=== PATIENT | female | born 1940 | race Caucasian/White ===

== ENCOUNTER → 2016-10-14 | Outpatient (CLI) | payer MEDICARE, MEDICAID ==
[~2016-10-14] MED LIST: ACETAMINOPHEN500 MG PO; ACYCLOVIR400 MG PO; ALBUTEROL2.5 MG/31 INH; AMIODARONE HCL100 MG PO; ASPIRIN325 MG PO; ATIVAN 0.5MG0.5 MG PO; AUGMENTIN XR1000 MG PO; CALCIUM 600 +1 EAC6 PO; CEFDINIR300 MG PO; CIPRO500 MG PO; COMPAZINE 10MG10 MG PO; DELTASONE10 MG PO; DELTASONE20 MG PO; DIFICID200 MG PO; DIFLUCAN200 MG PO; FLONASE 50 MCG/16 GM NOSE; FLUCONAZOLE200 MG PO; GABAPENTIN300 MG PO; IMODIUM MULTI-1 EACH PO; KLOR-CON M2020 MEQ PO; LASIX40 M1 PO; LEVAQUIN 750 M750 MG PO; LEVOFLOXACIN250 MG; LEXAPRO20 MG PO; MULTIVITAMINS1 EAC2 PO; NEURONTIN300 MG PO; NORCO 5-325 MG1 TAB PO; OMNICEF 300MG300 MG PO; OSCAL500 MG PO; OXYGEN M-15 INH; PRILOSEC20 MG PO; PRINIVIL (ZESTR20 MG PO; PROAIR HFA8.5 GM INH; PROBIOTIC1 EAC1 PO; PROTONIX40 MG PO; PROVENTIL2.5 MG/0.5 INH; REMERON15 MG PO; SOTALOL80 MG PO; SPIRIVA18 MCG INH; ZOCOR40 MG PO; ZOFRAN4 MG PO; ZOFRAN8 MG PO
[2016-10-14 14:15] LABS: HEMATOCRIT 29.8 % (33.0-46.0); HEMOGLOBIN 9.3 g/dL (10.0-15.0); MCH 27.1 pg (27.0-34.0); MCHC 31.2 gm/dL (32.0-36.5); MCV 86.9 fl (83.0-98.0); RBC 3.43 M/uL (3.50-5.50); RDW-CV 16.7 % (11.9-14.6); WBC 13.7 K/uL (4.0-11.0)
[2016-10-14 14:27] LABS: PLATELET COUNT 5 K/uL (150-450)
[2016-10-14 14:55] LABS: ABSOLUTE NEUTROPHIL CT (ANC) 8.4 K/uL (1.8-7.8); LYMPHOCYTE # 1.8 K/uL (0.8-4.0); LYMPHOCYTE % 13 %; MONOCYTE # 3.7 K/uL (0.0-1.0); SEGMENTED NEUTROPHIL # 8.4 K/uL (1.8-7.8); SEGMENTED NEUTROPHIL % 61 %
== END | disposition disaster alternative care site (69) ==
LOC: LHHCN 14:09 → EDBD 14:09
PROVIDERS: Internal Medicine Hematology & Oncology
DX: C34.2 Malignant neoplasm of middle lobe, bronchus or lung (principal); C79.51 Secondary malignant neoplasm of bone; D46.9 Myelodysplastic syndrome, unspecified; D69.6 Thrombocytopenia, unspecified

== ENCOUNTER 2016-10-15 05:23 | Emergency (ER) | payer MEDICARE, MEDICAID ==
--- NOTE | ~2016-10-15 | ER ---
PATIENT'S NAME: MARILEE SENA [facility] AGE: 76 Y [address] ROOM: [place] [address] LOCATION: [facility] ADMIT DATE: 10/15/2016 ER/Outpatient Report DISCHARGE DATE: 10/15/2016 FAMILY PHYSICIAN: Giselle Jones MD ATTENDING PHYSICIAN: Chavo Wyman Time of Arrival: 0522 hours. Time of Evaluation: 0522 hours. CHIEF COMPLAINT: Nosebleed. HISTORY OF PRESENT ILLNESS: The patient is a 76-year-old female, who presents to the emergency department today with a chief complaint of nosebleed. She reports this started last night. It is coming from the left naris. She is scheduled for a platelet infusion this morning at 10 o'clock. She denies any fevers, chills, nausea, or vomiting. No nasal congestion or nasal drainage. The patient does wear chronic home O2 at 3 L at home. She denies any pain at this time, 0 out of 10 in severity. PAST MEDICAL HISTORY: COPD; heart disease; myelodysplastic leukemia, brain, bone; and lung cancer. PAST SURGICAL HISTORY: Cholecystectomy, back surgery, right knee, left knee. SOCIAL HISTORY: The patient denies any tobacco, alcohol, or illicit drug use. ALLERGIES: NO KNOWN DRUG ALLERGIES. MEDICATIONS: Please see list. ONCOLOGIST: Dr. Alex. REVIEW OF SYSTEMS: All systems are reviewed by myself and are negative with the exception of those discussed in the HPI and past medical history. PHYSICAL EXAMINATION: VITAL SIGNS: Blood pressure 131/68, pulse 94, respiratory rate 16, PATIENT'S NAME: MARILEE SENA [facility] AGE: 76 Y [address] ROOM: [place] [address] LOCATION: [facility] ADMIT DATE: 10/15/2016 ER/Outpatient Report DISCHARGE DATE: 10/15/2016 FAMILY PHYSICIAN: Giselle Jones MD ATTENDING PHYSICIAN: Chavo Wyman temperature 97.2, oxygen saturation 94% on 3 L nasal cannula. GENERAL: The patient is a 76-year-old female, appears older than stated age, in no acute distress with active nosebleed. HEENT: Head: Normocephalic, atraumatic. Pupils are equal, round, and reactive to light. Left naris with bloody discharge noted. Oropharynx is clear. NECK: Supple. There is no nuchal rigidity. CARDIOVASCULAR: Regular rate and rhythm. No murmurs, rubs, or gallops. LUNGS: Diminished diffusely. ABDOMEN: Soft and nontender. SKIN: Warm and dry. LABORATORY DATA AND X-RAYS: None. IMPRESSION: 1. Epistaxis with chemical cauterization. 2. Initial visit. EMERGENCY DEPARTMENT COURSE: The patient was brought back to the examination room. Seen and evaluated immediately upon arrival by myself. The patient's left naris is evaluated as well as the right naris. The left naris does appear to have bleeding noted from Kiesselbach's plexus. Afrin is instilled. Pressure is held for 15 minutes. The area is explored. There does appear to be bleeding vessel noted. Silver nitrate is used for chemical cauterization on the left septal area of the Kiesselbach's plexus. This does result in resolution of the patient's bleeding. She is observed here in the emergency department. Bleeding has stopped. I have asked that she follows up with continue to get her platelets as scheduled for 10 o'clock in the morning. I have discussed return to care instructions. Return for any worsening bleeding, worsening symptoms, lightheadedness, dizziness, chest pain, shortness of breath, or any other concerns to the emergency department as soon as possible. She is to follow up with Dr. Jones and Dr. Alex in 2 to 3 days. The patient is agreeable. She is without further questions at this time. DISPOSITION: The patient discharged home in good condition. DO JAYMIE FARR/viola PATIENT'S NAME: MARILEE SENA [facility] AGE: 76 Y [address] ROOM: [place], [place] [address] LOCATION: ED ADMIT DATE: 10/15/2016 ER/Outpatient Report DISCHARGE DATE: 10/15/2016 FAMILY PHYSICIAN: Giselle Jones MD ATTENDING PHYSICIAN: Chavo Wyman /[id number] d: 10/15/166 t: 10/18/1604, OUTPATIENT REPORT
== END 2016-10-15 06:46 | disposition disaster alternative care site (69) ==
LOC: GMED 05:23
PROC: 0W3Q3ZZ Control Bleeding in Respiratory Tract, Percutaneous Approach (ICD-10-PCS; principal; 2016-10-15)
DX: R04.0 Epistaxis (principal); Z85.118 Personal history of other malignant neoplasm of bronchus and lung; Z85.830 Personal history of malignant neoplasm of bone; Z85.841 Personal history of malignant neoplasm of brain; Z85.6 Personal history of leukemia; Z90.49 Acquired absence of other specified parts of digestive tract; Z98.890 Other specified postprocedural states; Z79.899 Other long term (current) drug therapy
CPT/HCPCS: A9270

== ENCOUNTER 2016-10-24 04:21 | Emergency (ER) | payer OTHER, MEDICARE, MEDICAID ==
--- NOTE | ~2016-10-24 | ER ---
PATIENT'S NAME: MARILEE SENA [facility] AGE: 76 Y [address] ROOM: [place] [address] LOCATION: ED ADMIT DATE: 10/24/2016 ER/Outpatient Report DISCHARGE DATE: 10/24/2016 FAMILY PHYSICIAN: Giselle Jones MD ATTENDING PHYSICIAN: Sky Obrien Time of Arrival: 0421 hours. Time of Evaluation: 0445 hours. HISTORY OF PRESENT ILLNESS: This is a 76-year-old female with multiple medical problems, diffuse metastatic diseases, actually placed on hospice today, in by ambulance with complaint of shortness of breath. The reports that she became acutely short of breath and developed air hunger in the middle of the night. So, he called the ambulance and had her transported here. PAST MEDICAL HISTORY: Significant for myelodysplastic syndrome, coronary artery disease, previous DVT, hypertension, COPD, lung cancer with diffuse metastatic disease. PHYSICAL EXAMINATION: GENERAL: An ill-appearing elderly female in obvious physiologic distress, agonal respirations, hypotensive, and low oxygen saturations. She complained of nausea without pain. She also complained of air hunger. HEAD, EARS, EYES, NOSE, AND THROAT: Normal. NECK: Supple. Neck veins are flat. HEART: Had a regular rate and rhythm without murmur. LUNGS: She had coarse rhonchi audible bilaterally. ABDOMEN: Soft. EXTREMITIES: Normal. NEUROLOGIC: She could answer questions. She had no focal deficits. EMERGENCY DEPARTMENT COURSE: Her wishes were for comfort measures only. She was given Zofran 4 mg IV for her nausea. She was given morphine 2 mg IV to help with her air hunger. She was observed in the emergency department. Arrangements were made to admit her, but she prior to admission. ASSESSMENT: Respiratory failure due to diffuse metastatic disease. The patient succumbed to her illness in the emergency department. PATIENT'S NAME: MARILEE SENA [facility] AGE: 76 Y [address] ROOM: [place] [address] LOCATION: [facility] ADMIT DATE: 10/24/2016 ER/Outpatient Report DISCHARGE DATE: 10/24/2016 FAMILY PHYSICIAN: Giselle Jones MD ATTENDING PHYSICIAN: Sky Obrien MD JDB/modl /[id number] d: 10/25/16 0601 t: 11/22/16 0955, OUTPATIENT REPORT
[2016-10-24 05:03] LABS: MPV 12.3 fl (9.4-12.4); RBC 2.15 M/uL (3.50-5.50); RDW-CV 16.4 % (11.9-14.6)
[2016-10-24 05:04] LABS: WBC 95.8 K/uL (4.0-11.0)
[2016-10-24 05:05] LABS: HEMATOCRIT 18.5 % (33.0-46.0); MCH 27.9 pg (27.0-34.0); MCHC 32.4 gm/dL (32.0-36.5); PLATELET COUNT 20 K/uL (150-450)
[2016-10-24 05:29] LABS: ALBUMIN 2.2 gm/dL (3.5-5.0); CREATININE 3.6 mg/dL (0.5-1.1); POTASSIUM 4.8 mMol/L (3.7-5.1)
[2016-10-24 05:30] LABS: ANION GAP 24.8 (10.0-19.0); TOTAL BILIRUBIN 0.9 mg/dL (0.0-1.5)
[2016-10-24 05:58] LABS: ABSOLUTE NEUTROPHIL CT (ANC) 57.5 K/uL (1.8-7.8); BANDED NEUTROPHIL # 13.4 K/uL (0.0-0.1); BANDED NEUTROPHILS % 14 %; LYMPHOCYTE # 7.7 K/uL (0.8-4.0); LYMPHOCYTE % 8 %; MONOCYTE # 29.7 K/uL (0.0-1.0); SEGMENTED NEUTROPHIL # 44.1 K/uL (1.8-7.8); SEGMENTED NEUTROPHIL % 46 %
== END 2016-10-24 05:56 | disposition disaster alternative care site (69) ==
LOC: GMED 04:21 → GPCU 05:41 → GMED 05:41
PROVIDERS: Emergency Medicine
DX: J96.90 Respiratory failure, unspecified, unspecified whether with hypoxia or hypercapnia (principal); C34.90 Malignant neoplasm of unspecified part of unspecified bronchus or lung; I25.10 Atherosclerotic heart disease of native coronary artery without angina pectoris; I10 Essential (primary) hypertension; J44.9 Chronic obstructive pulmonary disease, unspecified; D46.9 Myelodysplastic syndrome, unspecified
CPT/HCPCS: J2270; J2405